=== PATIENT | male | born 1955 | race Caucasian/White ===

== ENCOUNTER → 2016-10-19 | Outpatient (CLI) | payer MEDICARE | LOC: CT 09:11 | DX: F17.210 Nicotine dependence, cigarettes, uncomplicated (principal); J43.9 Emphysema, unspecified; R91.1 Solitary pulmonary nodule | CPT/HCPCS: G0297 ==

== ENCOUNTER → 2016-11-01 | Outpatient (CLI) | payer MEDICARE | LOC: RT 10:45 | DX: R09.02 Hypoxemia (principal) | CPT/HCPCS: 36600; 82803 ==